=== PATIENT | male | born 1955 | race Caucasian/White ===

== ENCOUNTER 2025-08-17 07:07 | Inpatient (IN) ==
--- NOTE | 2025-08-09 15:42 | PAT Medication Instructions ---
Medication Instructions Date of Service August 09, 2025 Home Medications citalopram 40 mg tablet 40 mg PO QAM montelukast 10 mg tablet 10 mg PO QPM tamsulosin 0.4 mg capsule 0.4 mg PO QAM aspirin 81 mg chewable tablet 81 mg PO QAM atorvastatin 40 mg tablet 40 mg PO HS cetirizine 10 mg tablet (Zyrtec) 10 mg PO QAM sennosides 8.6 mg tablet 8.6 mg PO QAM PRN Constipation ascorbic acid (vitamin C) 500 mg tablet (Vitamin C) 1,000 mg PO DAILY cholecalciferol (vitamin D3) 50 mcg (2,000 unit) capsule (Vitamin D3) 100 mcg PO DAILY omega-3 fatty acids 2,000 mg PO QAM pantoprazole 20 mg tablet,delayed release 20 mg PO QAM primidone 50 mg tablet 100 mg PO HS ASK your prescriber and surgeon aspirin 81 mg chewable tablet 81 mg PO QAM STOP taking 2 weeks before surgery (or as soon as possible if surgery is within 2 weeks) omega-3 fatty acids 2,000 mg PO QAM DO NOT take the morning of surgery cetirizine 10 mg tablet (Zyrtec) 10 mg PO QAM sennosides 8.6 mg tablet 8.6 mg PO QAM PRN Constipation ascorbic acid (vitamin C) 500 mg tablet (Vitamin C) 1,000 mg PO DAILY cholecalciferol (vitamin D3) 50 mcg (2,000 unit) capsule (Vitamin D3) 100 mcg PO DAILY Take morning of surgery With a small sip of water, OTHERWISE NOTHING TO EAT OR DRINK AFTER MIDNIGHT: citalopram 40 mg tablet 40 mg PO QAM tamsulosin 0.4 mg capsule 0.4 mg PO QAM pantoprazole 20 mg tablet,delayed release 20 mg PO QAM Take evening before surgery montelukast 10 mg tablet 10 mg PO QPM atorvastatin 40 mg tablet 40 mg PO HS primidone 50 mg tablet 100 mg PO HS Other Notes If you have any questions please call us at [phone] or [phone] or [phone] or [phone]
--- NOTE | 2025-08-13 08:51 | Anesthesiology Consultation ---
Date of Service August 13, 2025 Assessment & Plan (1) Encounter for pre-operative examination: Infectious disease screening: Per assessment on 08/09/25- No known recent infectious disease contacts or current infectious disease symptoms. Chart Review Chart Review: Acceptable Risk for Surgery and Patient seen in Pre Admission Testing Teaching & Discussion Pre-Anesthesia Teaching/Discussion Notes: Instructed NPO after midnight before surgery,except medications with 15 cc of water. Medication instructions provided according to the PAT guidelines. History Surgery Operation Date: 08/17/25 07:00 Proposed Procedures p Left Knee Poly Exchange - Vincent Adams MD Height/Weight Height: 6 ft 2 in Weight: 129.8 kg Allergies Allergy/AdvReac Type Severity Reaction Status Date / Time No Known Allergies Allergy Verified 08/09/25 14:47 Medications Home Medications Medication Instructions Recorded Confirmed Last Taken citalopram 40 mg tablet 40 mg PO QAM 05/30/21 08/09/25 04/27/22 montelukast 10 mg tablet 10 mg PO QPM 05/30/21 08/09/25 04/27/22 tamsulosin 0.4 mg capsule 0.4 mg PO QAM 05/30/21 08/09/25 04/27/22 aspirin 81 mg chewable tablet 81 mg PO QAM 04/02/22 08/09/25 04/27/22 atorvastatin 40 mg tablet 40 mg PO HS 04/02/22 08/09/25 04/27/22 cetirizine 10 mg tablet (Zyrtec) 10 mg PO QAM 04/02/22 08/09/25 04/27/22 sennosides 8.6 mg tablet 8.6 mg PO QAM PRN Constipation 04/02/22 08/09/25 04/27/22 ascorbic acid (vitamin C) 500 mg 1,000 mg PO DAILY 08/09/25 08/09/25 Unknown tablet (Vitamin C) cholecalciferol (vitamin D3) 50 100 mcg PO DAILY 08/09/25 08/09/25 Unknown mcg (2,000 unit) capsule (Vitamin D3) omega-3 fatty acids 2,000 mg PO QAM 08/09/25 08/09/25 Unknown pantoprazole 20 mg tablet,delayed 20 mg PO QAM 08/09/25 08/09/25 Unknown release primidone 50 mg tablet 100 mg PO HS 08/09/25 08/09/25 Unknown Past Medical History Medical History (Updated 08/13/25 @ 15:09 by Skylar Holliday) BPH (benign prostatic hyperplasia) Brain bleed Hemorrhage present on brain imaging at least present back to 2000, no noted hemorrhage on more recent brain MRI 02/2023- stable cavernous malformation noted. Patient states no issues r/t previous brain imaging findings and advised nothing further needed. CKD (chronic kidney disease) stage 3, GFR 30-59 ml/min Emphysema lung Per records, patient denies GERD (gastroesophageal reflux disease) History of Lyme disease Positive 2021 per records Hx of bladder cancer ~10 years ago, s/p surgical intervention x2, chemo x2 Follows with [facility] Hx of transient ischemic attack (TIA) 2020 Hyperlipidemia Prediabetes Per records, patient denies PTSD (post-traumatic stress disorder) Takes citalopram Sleep apnea CPAP (compliant) Exercise / Class Metabolic Activity II 4-5 Yardwork/Stairs/Walk up hill (one FS: No CP, no SOB) Past Family History Family History Other No family history of adverse response to anesthesia Past Surgical History Surgical History History of total right hip arthroplasty History of transurethral resection of bladder tumor (TURBT) Multiple History of umbilical hernia repair Hx laparoscopic cholecystectomy Hx of left cataract extraction Hx of right cataract extraction Nausea and vomiting after administration of anesthetic agent Many years ago, does well when premedicated S/P ankle ligament repair Left S/P carpal tunnel release Right S/P colonoscopy S/P knee replacement B/L S/P lumbar spine operation x3 (1 procedure r/t herniated disc, other were fx, most recent ~2014) Past Anesthesia History No Hx of Anesthesia Complications and No Family Hx of Anesthesia Complications History of PONV No Hx of Motion Sickness and History of PONV (Many years ago, does well when premedicated) Social History Smoking Status: Former smoker Do You Dip or Chew Tobacco: No (Quit 20+ years ago) Smoking End Date: Quit 2004 Hx Alcohol Use: No Hx Substance Use: No substance use type: does not use Review of Systems Patient denies chest pain, shortness of breath, dyspnea on exertion, fever, chills, cough, wheezing, palpitations. Physical Exam Vital Signs BP 125/79 P 70 TEMP 98.3 SP02 96%RA RESP 16 Physical Full cervical extension range of motion. Full TMJ range of motion. TMD > 3.5 finger breaths Mallampati Score III Dentition: lower partial Lungs: clear throughout to auscultation Cardiac: regular rate and rhythm, no murmurs noted Spine: normal Carotid arteries: negative bruit Extremities: no LE edema Lab Results Anesthesia Preop Results Results Anesthesia Widget: WBC 5.53 K/ul (4.8-10.8) 08/13/25 Hgb 14.3 g/dl (14.0-18.0) 08/13/25 Hct 41.7 % (42.0-52.0) L 08/13/25 Plt 161 K/uL (130-400) 08/13/25 Na 142 mmol/L (136-145) 08/13/25 K 3.8 mmol/L (3.5-5.1) 08/13/25 Cl 105 mmol/L (98-107) 08/13/25 CO2 29 mmol/L (21-32) 08/13/25 BUN 28 mg/dl (6-23) H 08/13/25 Creat 1.24 mg/dl (0.6-1.4) 08/13/25 Glucose Level 100 mg/dl (70-99(Fasting)) H 08/13/25 PT 10.9 Seconds (9.0-12.0) 08/13/25 PTT 27 Seconds (21-31) 08/13/25 INR 1.0 (0.9-1.1) 08/13/25 Urine Color Yellow 08/13/25 Urine Appearance Clear (Clear) 08/13/25 Urine pH 6.0 (4.5-7.5) 08/13/25 Urine Specific [place] 1.026 (1.000-1.030) 08/13/25 Urine Protein Negative (Negative) 08/13/25 Urine Glucose (UA) Negative (Negative) 08/13/25 Urine Ketones Negative (Negative) 08/13/25 Urine Blood Negative (Negative) 08/13/25 Urine Nitrite Negative (Negative) 08/13/25 Urine Bilirubin Negative (Negative) 08/13/25 Urine Urobilinogen Negative (Negative) 08/13/25 Urine Leukocyte Esterase Negative (Negative) 08/13/25 Blood Type A Negative 08/13/25 Antibody Screen NEGATIVE 08/13/25 Testing Electrocardiogram Date: 10/04/24 SB at 56bpm. "Otherwise normal ECG" Chest X-Ray Date: 10/04/24 Findings: + NAD Echocardiogram Date: 12/01/22 LVEF 55-59%. No LV wall motion abnormalities. No significant valvular disease. Mild AYSE. No significant valvular disease. Other Testing Brain MRI Date: 02/15/23 FINDINGS There are no foci of restricted diffusion. There is stable signal abnormality seen adjacent to the left frontal horn, most consistent with a cavernous malformation. There is mild proportional enlargement of the ventricles and sulci, consistent with mild global volume loss. The ventricles are similar in size to the prior study. There are nonspecific subcortical and periventricular foci of T2/FLAIR hyperintensity, most commonly associated with chronic small vessel disease. There is no midline shift. The basal cisterns are patent. The normally expected, central arterial flow voids of the [place] are grossly maintained. The calvarium is not significantly changed. There are asymmetric degenerative changes of the left temporomandibular joint. The nasal septum is deviated to the left. There is mild mucosal thickening of the right frontal sinus, ethmoid air cells, and sphenoid sinuses. There are postsurgical changes of bilateral lens replacement surgery. The mastoid air cells are clear. IMPRESSION 1. No acute intracranial abnormality is identified. 2. Stable signal abnormality seen adjacent to the left frontal horn, most consistent with a cavernous malformation. 3. Scattered nonspecific cerebral white matter foci of T2/FLAIR hyperintensity, most commonly associated with chronic small vessel disease.
--- NOTE | 2025-08-15 14:47 | History & Physical Report ---
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 Plan is a polyethylene exchange to a new polyethylene component of the tibia of the left knee. History of Present Illness Chief Complaint: Acute instability and pain left knee after injury Primary Care Provider: Agustín Phoenix DO 70-year-old male history of left total knee replacement 2014 was doing well until he had an injury to his left knee with x-ray showing no fracture but continued to have instability of his knee since the episode with pain. Allergies Allergy/AdvReac Type Severity Reaction Status Date / Time No Known Allergies Allergy Verified 08/09/25 14:47 Home Medications Medication Instructions Recorded Confirmed Type citalopram 40 mg tablet 40 mg PO QAM 05/30/21 08/09/25 History montelukast 10 mg tablet 10 mg PO QPM 05/30/21 08/09/25 History tamsulosin 0.4 mg capsule 0.4 mg PO QAM 05/30/21 08/09/25 History aspirin 81 mg chewable tablet 81 mg PO QAM 04/02/22 08/09/25 History atorvastatin 40 mg tablet 40 mg PO HS 04/02/22 08/09/25 History cetirizine 10 mg tablet (Zyrtec) 10 mg PO QAM 04/02/22 08/09/25 History sennosides 8.6 mg tablet 8.6 mg PO QAM PRN Constipation 04/02/22 08/09/25 History ascorbic acid (vitamin C) 500 mg 1,000 mg PO DAILY 08/09/25 08/09/25 History tablet (Vitamin C) cholecalciferol (vitamin D3) 50 100 mcg PO DAILY 08/09/25 08/09/25 History mcg (2,000 unit) capsule (Vitamin D3) omega-3 fatty acids 2,000 mg PO QAM 08/09/25 08/09/25 History pantoprazole 20 mg tablet,delayed 20 mg PO QAM 08/09/25 08/09/25 History release primidone 50 mg tablet 100 mg PO HS 08/09/25 08/09/25 History Past Med/Surg History Problem List (Updated 08/15/25 @ 14:46 by Vincent Adams MD) 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 Patient states no issues r/t previous brain imaging findings and advised nothing further needed. CKD (chronic kidney disease) stage 3, GFR 30-59 ml/min GERD (gastroesophageal reflux disease) Emphysema lung Per records, patient denies Prediabetes Per records, patient denies BPH (benign prostatic hyperplasia) Hx of bladder cancer ~10 years ago, s/p surgical intervention x2, chemo x2 Follows with [facility] PTSD (post-traumatic stress disorder) Takes citalopram Hyperlipidemia Hx of transient ischemic attack (TIA) 2020 Sleep apnea CPAP (compliant) Surgical History Nausea and vomiting after administration of anesthetic agent Many years ago, does well when premedicated History of transurethral resection of bladder tumor (TURBT) Multiple Hx of right cataract extraction Hx of left cataract extraction Hx laparoscopic cholecystectomy History of total right hip arthroplasty S/P colonoscopy S/P carpal tunnel release Right S/P ankle ligament repair Left History of umbilical hernia repair S/P lumbar spine operation x3 (1 procedure r/t herniated disc, other were fx, most recent ~2014) S/P knee replacement B/L Family History Other No family history of adverse response to anesthesia Social History Smoking Status: Former smoker Second Hand Exposure: No; Do You Dip or Chew Tobacco: No (Quit 20+ years ago); Hx Alcohol Use: No Hx Substance Use: No Preferred Language: Swedish Communication Ability: Effective Dish Washer Required: No Beliefs That Will Affect Care: None Current Living Situation: Spouse Feels Safe at Home: Yes Assistive Devices: CPAP and Denture - Lower Review of Systems No acute medical issues chest pain shortness of breath. Physical Exam Constitutional: WD/WN, vitals as above Respiratory: normal respiratory effort; no respiratory distress Cardiovascular: Rate/Rhythm: regular rate and regular rhythm Musculoskeletal: Left knee with mild effusion benign surgical scars mild swelling and a positive posterior drawer with no good endpoint consistent with fracture polyethylene post and posterior stabilized implant his right knee which has a posterior stabilized total knee replacement has a solid endpoint. There is mid flexion laxity of the left knee also consistent with fracture polyethylene post creating instability. He has a 0 through 130 degrees range of motion both knees. And his distal neurological circulation exam intact. Skin: no rashes, warm and dry Neurologic: normal touch/pain/proprioception Psychiatric: A+Ox3, euthymic affect Results & Data Diagnostic Findings X-rays demonstrate a [employer]hew journey knee replacement with well-fixed well aligned components no loosening. Patella centrally tracking.
[~2025-08-17 07:07] MED LIST: BUPIVACAINE 0.5 % 5 MG/1 ML PF 10ML VIAL ONE; ROPIVACAINE 0.5% 5 MG/ML 30 ML VIAL ONE
[2025-08-17] MEDS: VANCOMYCIN HCL 2,000 MG in SODIUM CHLORIDE 0.9% 500 ML IV SCH (07:20)
[2025-08-17] MEDS: LR 500ML BOLUS, THEN 15ML/HR IV SCH (07:28)
[2025-08-17] MEDS ORDERED: ONDANSETRON INJ 2 MG/ML 2 ML VIAL ONE (07:42)
[2025-08-17] MEDS ORDERED: MIDAZOLAM HCL 1 MG/ML 2ML VIAL ONE (07:42)
[2025-08-17] MEDS ORDERED: PROPOFOL IV EMULSION 10 MG/ML 20 ML VIAL IV ONE ×5 (07:42→11:51)
[2025-08-17] MEDS ORDERED: LIDOCAINE 2% 2 ML VIAL/AMP(20MG/ML) INFIL ONE (07:42)
[2025-08-17] MEDS: dexAMETHasone**PF** 10 MG/ML VIAL IV SCH (07:51)
[2025-08-17] MEDS: METOCLOPRAMIDE HCL 10 MG TABLET PO SCH (07:52)
[2025-08-17] MEDS: FAMOTIDINE 20 MG TAB PO SCH (07:52)
[2025-08-17] MEDS: CeleBREX 200 MG CAP PO SCH (07:52)
[2025-08-17] MEDS: ACETAMINOPHEN 500 MG TAB PO SCH ×2 (07:52→15:09)
[2025-08-17] MEDS: GABAPENTIN 300 MG CAP PO SCH (07:53)
[2025-08-17] MEDS: LR 60ML/HR IV SCH (07:53)
--- NOTE | 2025-08-17 09:56 | History & Physical Bridge Note ---
Date of Service August 17, 2025 History & Physical Bridge Note I have examined the patient, reviewed the History & Physical and in the interval since the performance of the History & Physical I have noted the following changes of clinical significance: no changes noted
[2025-08-17] MEDS: TRANEXAMIC ACID 1,000 MG **IV Pre-op IV SCH (10:12)
[2025-08-17] MEDS: ceFAZolin 3000MG 3,000 MG/72.5 ML BAG IV SCH (10:23)
[2025-08-17] MEDS: ROPIVACAINE 0.5% HCL/PF 246 MG, Ketorolac (*for OR use only*) 30 MG in SODIUM CHLORIDE ... INFIL SCH (11:37)
[2025-08-17] MEDS: ORTHO JOINT ANESTHETIC ONE (11:59)
--- NOTE | 2025-08-17 12:40 | Operative Report ---
Post Operative Report Pre & Post Diagnosis Operation Date: 08/17/25 09:40 Pre-Op Diagnosis: Left Knee Instability status post total knee arthroplasty with fractured polyethylene post. Post-Op Diagnosis: Left Knee Instability status post total knee arthroplasty with fractured polyethylene post and synovitis. I identified the patient and participated in the time-out.: Yes Procedure Operation Date: 08/17/25 09:40 Actual Procedures p Left knee revision of tibial polyethylene component of total knee replacement with electrocautery synovectomy and application lisa and Acticoat superficial wound VAC- Vincent Adams MD Surgeon Vincent Adams MD Fire Protection Equipment Technician Osman CEDEÑO Estimated Blood Loss 5 Findings Consistent with Post-Op Diagnosis Specimens Polyethylene of tibial component Drains 2 Hemovac Anesthesia Type MAC Spinal Regional Complications none Disposition Disposition: Recovery Room Indications 70-year-old male presented with instability left knee replacement after having had total knee replacement in 2013 and doing well for many years. Clinically clearly has unstable posterior stabilized knee replacement with fractured polyethylene post. Radiographs demonstrate no loosening and inflammatory parameters are normal Description of Procedure Patient was placed under spinal MAC regional block anesthetic. Placed and placed supine on the operating table with a pneumatic tourniquet about the left upper thigh. Left knee exam demonstrated clearly had posterior subluxation of the tibia under the femur consistent with a fracture polyethylene post of the posterior stabilized implant he also had mid flexion marked varus valgus laxity. Left lower extremity was prepped and draped with ChloraPrep in usual fashion. Leg was elevated exsanguinated with an Esmarch bandage and a pneumatic tourniquet was raised to 325 mmHg. His old scar was used for the anterior incision. Skin flaps were elevated and a paramedian arthrotomy performed extended up into the mid third of the quadriceps tendon and down to the medial tibial tubercle. Patient had scarred synovial tissue in the suprapatellar pouch around the patella and infrapatellar fat pad also scarred. Some recurrent lateral synovial bands were released and excised. The tibial polyethylene had a fractured post and the area of the fracture was rounded off and very smooth as this appeared to be chronic. The posterior fragment was stuck in the notch area of the knee prosthesis. This was removed. Electrocautery synovectomy was performed removing the thickened scarred synovial tissue medial and lateral gutter and suprapatellar pouch area. Scarred synovial tissue was also removed around the patella and the scarred infrapatellar fat pad was resected. Hemostasis obtained with aqua mantis. The polyethylene of the tibial was then removed and then we had further exposure so we could remove some of the scarred synovial tissue around the tibia medially and laterally and remove any tissue that would interfere with placing a new polyethylene in place. This was removed with rongeur hemostat and electrocautery devices. A trial 10 constrained polyet hylene was placed and this was appropriate with full extension and complete resolution of instability and full range of motion. The trial was removed. The knee joint was irrigated with Irrisept followed by pulsatile lavage saline solution. The new Welch & Nephew size 5/6 constrained left posterior stabilized tibial polyethylene implant was inserted and then the knee was extended and then the insertion device was used to finalize the insertion with a stable implant. Knee was taken through full range of motion and implant was stable and the patella tracked centrally. Further irrigation with Irrisept followed by saline was performed and then 2 Hemovac drains were placed and brought out laterally and the quadriceps tendon and medial retinacular closure performed with interrupted #2 FiberWire sutures in the medial retinaculum and distal quadriceps tendon and at the apex of the quad split and another additional suture at the level of the tibial polyethylene. A 0 strata fix running locking suture was used starting at the apex of the quad split down to the inferior pole patella medial retinacular area followed by interrupted [id number] #1 Vicryl sutures below that level. The knee was taken through full range of motion was very secure repair through full motion and the knee was stable. After further irrigation the subcutaneous tissue was closed up to 2-0 Vicryl sutures the skin was closed with surgical blake a lisa and Acticoat superficial wound VAC was applied. The patient tolerated the procedure well. Osman CEDEÑO participated as first officer and flight instructor and assisted in leg positioning soft tissue retraction and the closure and application of lisa and Acticoat wound VAC and postoperative care. Im ordering collagen sheets as a primary dressing and bordered super absorbent for secondary dressings for the wound resulting from this surgery. Collagen is being utilized to encourage the growth of blood vessels and granulation tissue. The collagen will also speed up the wound healing process, increase skin tensile strength at the surgery site and lessen the chance of a wound dehiscence, help prevent infection, and reduce the appearance of scarring. The silicone secondary dressings will protect the wound and help keep it clean and minimize that chances for infection. I believe that this treatment protocol is medically necessary to help facilitate the best outcome possible for my patient. I attest to the content of the Intraoperative Record and any orders documented therein. Any exceptions are noted below.
[2025-08-17] MEDS ORDERED: ONDANSETRON INJ 2 MG/ML 2 ML VIAL IV PRN ×2 (12:41→13:48)
[2025-08-17] MEDS ORDERED: HYDROmorphone INJ 2 MG/ML SYR/VIAL IV PRN (12:41)
[2025-08-17] MEDS ORDERED: DEXAMETHASONE SOD INJ 4 MG/ML VIAL IV PRN (12:41)
[2025-08-17] MEDS ORDERED: ATROPINE SULFATE 0.1 MG/ML 10ML SYR IV PRN (12:41)
--- NOTE | 2025-08-17 13:03 | XRay Report ---
XR knee LT 1 or 2V routine CLINICAL HISTORY: Surgical Post Op COMPARISON: None FINDINGS: Left knee prosthesis shows no hardware complication. There is expected soft tissue gas. Sk in blake are present. Postoperative drain is present. IMPRESSION: Unremarkable postoperative exam. ACT 112: Negative or not required by law. Electronically signed by: Agustín Thompson M.D. 08/17/2025 1:01 PM
--- NOTE | 2025-08-17 13:32 | Anesthesiology Progress Note ---
Date of Service August 17, 2025 Anesthesia Post Procedure Vital Signs Vital Signs: Temp Pulse Resp BP Pulse Ox O2 Del Method O2 Flow Rate 08/17/25 13:20 36.4 C L 65 14 122/74 93 Nasal Cannula 2 08/17/25 13:10 64 12 117/68 95 Nasal Cannula 2 08/17/25 13:00 67 13 116/73 94 Oxymask 2 08/17/25 12:50 69 13 118/67 96 Oxymask 10 08/17/25 12:40 70 14 113/63 97 Oxymask 10 08/17/25 12:34 36.7 C 71 12 112/65 95 Oxymask 10 08/17/25 07:34 36.5 C 72 18 139/84 94 Room Air Pain Intensity Left Knee: Pain Intensity: 2 Transfer of Care Handoff Completed per policy Notes Mental Status: alert / awake / arousable and participated in evaluation Patient Amnestic to Procedure: Yes Nausea / Vomiting: adequately controlled Pain: adequately controlled Airway Patency, RR, SpO2: stable & adequate BP & HR: stable & adequate Hydration State: stable & adequate Neuraxial Anesthesia: was administered and sensory block is resolving Anesthetic Complications: no major complications apparent and Pt Satisfied with anesthetic care
[2025-08-17] MEDS ORDERED: METOCLOPRAMIDE HCL INJ 5 MG/ML 2 ML VIAL IV PRN (13:48)
[2025-08-17] MEDS ORDERED: HYDROmorphone INJ 0.5 MG/0.5 ML SYR IV PRN (13:48)
[2025-08-17] MEDS ORDERED: ALUMINUM/MAGNESIUM SUSP 30 ML UDC PO PRN (13:48)
[2025-08-17] MEDS ORDERED: NALOXONE HCL 0.4 MG/1 ML VIAL/CARP IV PRN (13:48)
[2025-08-17] MEDS ORDERED: SENNA 8.6 MG TAB PO PRN (13:48)
[2025-08-17] MEDS ORDERED: diphenhydrAMINE Capsule 25 MG CAP PO PRN (13:48)
[2025-08-17] MEDS ORDERED: KETOROLAC TROMETHAMINE 15 MG/ML VIAL IV PRN (13:48)
[2025-08-17] MEDS ORDERED: MAGNESIUM HYDROXIDE SUSP 30 ML UDC PO PRN (13:48)
[2025-08-17] MEDS: SODIUM CHLORIDE 0.9% 1,000 ML IV SCH (14:05)
[2025-08-17] MEDS: TRANEXAMIC ACID / 0.7% NACL 1,000 MG/100 ML BAG IV SCH (18:34)
[2025-08-17] MEDS: DOCUSATE SODIUM 100 MG CAP PO SCH (20:20)
[2025-08-17] MEDS: SENNA 8.6 MG TAB PO SCH (20:20)
[2025-08-17] MEDS: MONTELUKAST SODIUM 10 MG TABLET PO SCH (20:21)
[2025-08-17] MEDS: ATORVASTATIN 40 MG TAB PO SCH (20:21)
[2025-08-17] MEDS: PRIMIDONE 50 MG TAB PO SCH (20:22)
[2025-08-18 00:54] VITALS: O2SAT 93
[2025-08-18 06:32] LABS: Hematocrit (blood only) 40.3 % (42.0-52.0); Hemoglobin 13.7 g/dL (14.0-18.0); Mean Corpuscular Hemoglobin 29.5 pg (25.0-34.0); Mean Corpuscular Volume 86.9 fL (80.0-100.0); Platelet Count 173 K/uL (130-400); RDW Standard Deviation 40.6 fL (36.4-46.3); Red Blood Count 4.64 M/uL (4.70-6.10); White Blood Count 11.73 K/ul (4.8-10.8)
[2025-08-18 06:57] LABS: Anion Gap 10.0 (3-11); Blood Urea Nitrogen 33.0 mg/dl (6-23); Calcium 8.8 mg/dl (8.6-10.3); Carbon Dioxide 26.0 mmol/L (21-32); Chloride 102.0 mmol/L (98-107); Creatinine Clr Calc Pharmacy 73.6 ml/min; Glucose 108.0 mg/dl (70-99(Fasting)); Potassium 3.9 mmol/L (3.5-5.1); Sodium 138.0 mmol/L (136-145)
[2025-08-18] MEDS: CHOLECALCIFEROL 25 MCG (1000 UNITS) TAB PO SCH (07:42)
[2025-08-18] MEDS: ASPIRIN 81 MG ECTAB PO SCH (07:42)
[2025-08-18] MEDS: TAMSULOSIN HCL 0.4 MG CAP PO SCH (07:42)
[2025-08-18] MEDS: CITALOPRAM 40 MG TAB PO SCH (07:42)
[2025-08-18] MEDS: CETIRIZINE HCL 10 MG TABLET PO SCH (07:42)
[2025-08-18] MEDS: OMEGA-3 (PURIFIED FISH OIL) 1 GM CAP PO SCH (07:42)
[2025-08-18] MEDS: ASCORBIC ACID 500 MG TAB PO SCH (07:42)
[2025-08-18] MEDS: MULTIVITAMIN TAB PO SCH (07:42)
[2025-08-18] MEDS: dexAMETHasone 10 MG in SYRINGE 0 ML IV SCH (07:43)
--- NOTE | 2025-08-18 07:58 | Orthopedic Progress Note ---
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 Discharge planningplan for discharge home today and patient will go to outpatient physical therapy. The Hemovac may be removed prior to discharge. Admission and Anticipated Discharge Date Admission Date: August 17, 2025 Subjective Patient is doing well postop day #1 from polyethylene exchange from his left total knee arthroplasty. Pain is controlled in the knee. No complaints this morning. Physical Exam Constitutional: WD/WN, vitals as above well developed and well nourished; no acute distress Musculoskeletal: Knee: + surgical incision (Left knee dressing C/D/I) and + surgical drain present (Hemovac drainage approximately 200 cc); knee normal to inspection, no skin erythema and no ecchymosis Skin: no rashes, warm and dry Trauma: no evidence of skin trauma Neurologic: normal touch/pain/proprioception Psychiatric: A+Ox3, euthymic affect Speech: normal rate/rhythm/volume of speech Results & Data Vital Signs (Past 12 Hours) Vital Signs Temp Pulse Resp BP Pulse Ox O2 Del Method 08/18/25 00:45 36.3 C L 68 15 136/77 93 Room Air 08/17/25 20:47 36.4 C L 65 16 152/82 H 92 Room Air Laboratory Results Laboratory Tests 08/18/25 05:41 Hgb 13.7 L Hct 40.3 L Sodium 138 Potassium 3.9 BUN 33 H Creatinine 1.33
[2025-08-18 08:29] VITALS: BP 147/80; PULSE 70; RESP 18; TEMP 97.5
--- NOTE | 2025-08-22 10:47 | Discharge Summary ---
Date of Service August 22, 2025 Admission HPI Per Admitting Provider 70-year-old male history of left total knee replacement 2014 was doing well until he had an injury to his left knee with x-ray showing no fracture but continued to have instability of his knee since the episode with pain. Principal Diagnosis Left knee total knee arthroplasty polyethylene fracture Discharge Exam Constitutional WD/WN, vitals as above well developed and well nourished; no acute distress Musculoskeletal Knee: + surgical incision (Left knee dressing C/D/I) and + surgical drain present (Hemovac drainage approximately 200 cc); knee normal to inspection, no skin erythema and no ecchymosis Skin no rashes, warm and dry Trauma: no evidence of skin trauma Neurologic normal touch/pain/proprioception Psychiatric A+Ox3, euthymic affect Speech: normal rate/rhythm/volume of speech Discharge Data Allergies Allergy/AdvReac Type Severity Reaction Status Date / Time No Known Allergies Allergy Verified 08/17/25 07:30 Procedures Performed Operation Date: 08/17/25 09:40 Actual Procedures p Left Knee Poly Exchange(Left) - Vincent Adams MD Ordered Studies 08/17/25 05:00 US - OR guided needle placemen Routine Hospital Course (1) Polyethylene liner wear following total knee arthroplasty requiring isolated polyethylene liner exchange: Doing well POD #1 s/p Left knee revision of tibial polyethylene component of total knee replacement with electrocautery synovectomy and application pamela and Acticoat superficial wound VAC PT/OT DVT prophylaxisaspirin 81 mg twice daily, ZHENG stockings Pain control as written. Discharge planningplan for discharge home today and patient will go to outpatient physical therapy. The Hemovac may be removed prior to discharge. Total Time Total Time Spent Total Time Spent (In Minutes): 15 Discharge Plan Discharge Items Patient Disposition: Home - Self-Care Reason For Visit: Left Knee Instability, Hx of TKA Discharge Diagnosis: Left total knee fractured polyethylene post right Activity: Per Instructions section Non-emergency contact: Primary Care Provider and Surgeon Call non-emergency contact if: your pain is not controlled, your pain is worsening and your temperature is above 101 Follow-up/Referrals: Agustín Phoenix DO [Primary Care Provider] - Diet: Regular Addtl Attending Provider Instructions: ACTIVITY RECOMMENDATIONS: SELF CARE INSTRUCTIONS AFTER TOTAL KNEE POLYETHYLENE EXCHANGE A. You may need to continue a physical therapy program after discharge from the hospital. There are several options available to you. Your doctor will assist you in selecting the best one for you. 1. An out-patient facility 3 times a week for therapy. 2. Home therapy for 1 to 2 weeks with outpatient therapy to follow. 3. Continue working on all exercises taught by physical therapy three times a day for 20 minutes on non-therapy days. Your goals should be to increase the bending of your knee to 90 degrees and beyond and to fully straighten your knee. Ice and elevate knee after exercise. B. Weight as tolerated with a walker or as instructed by your physician. C. It is okay to shower if minimal to no drainage from incision. No Baths. Do not soak wound. D. Make walking a part of your daily routine. Be up as much as comfortable with rest periods throughout the day. Rest with leg elevation is very important. Use the ice wrap frequently for the first 3-4 weeks. E. There are no restrictions on activities. You may ride in a car, shop, participate in mill turner and all social activities. F. Wear the long elastic stockings (ZHENG hose) 20 hours a day for one month after surgery. They can be removed several times a day for laundering and when showering. G. You may return to previous diet. H. PAMELA dressing: You have a PAMELA dressing on your surgical wound. It will remain in place for 7 days from surgery. You will be provided with a booklet with the do's and don'ts with the dressing in place. After 7 days, the dressing may be removed. If there is drainage from the surgical incision, you may cover the wound with dry dressings. I. You will have collagen dressings sent to your home. These dressings will be started once the PAMELA dressing is removed 7 days after surgery. SPECIAL CARE INSTRUCTIONS: VERY IMPORTANT TO READ AND REVIEW A. Take Coumadin, Xarelto, Aspirin or Lovenox (blood thinning medications) as directed by your doctor. If on Coumadin, have a pro-time (blood test) drawn according to your doctor's instructions. This will tell the doctor how well the Coumadin is thinning your blood. B. There are a few signs you need to watch for after you are home. Call [facility] if you notice any of the followin. Increased severe knee pain. Some pain is expected especially when you exercise. 2. Increased swelling in your leg or knee; pain or swelling of the calf muscle in either lower leg. 3. Any redness or fluid drainage from the incision. 4. Shortness of breath or chest pain. 5. A Temperature of 101 degrees F or greater. C. Please call [facility] at if you have any concerns or questions about your operation or recovery. The doctor or his nurse will return your call promptly. D. You must take antibiotics before dental work, bladder, bowel or other surgery. Your doctor will provide you with a permanent care to carry describing this precaution. FOLLOW UP VISIT: If appointment is not already scheduled: Please call [facility] to make a follow-up appointment for 2 weeks after your surgery at . Pending Studies at Discharge: No Stand-Alone Forms: My [facility] [employer], Smoking Cessation Medications and DC Order Prescriptions: New celecoxib [Celebrex] 200 mg capsule 200 mg PO Q12H Qty: 60 0RF aspirin 81 mg tablet,delayed release (DR/EC) 81 mg PO BID Qty: 60 0RF cefadroxil 500 mg capsule 500 mg PO Q12H Qty: 28 0RF oxycodone 5 mg tablet 5 mg PO Q4H PRN (Reason: pain) Qty: 30 0RF acetaminophen [Tylenol Extra Strength] 500 mg tablet 1,000 mg PO Q8H Qty: 90 0RF Continued tamsulosin 0.4 mg capsule 0.4 mg PO QAM citalopram [Celexa] 40 mg tablet 40 mg PO QAM montelukast 10 mg tablet 10 mg PO QPM atorvastatin 40 mg Tablet 40 mg PO HS sennosides 8.6 mg Tablet 8.6 mg PO QAM PRN (Reason: Constipation) cetirizine [Zyrtec] 10 mg Tablet 10 mg PO QAM primidone [Mysoline] 50 mg Tablet 100 mg PO HS pantoprazole 20 mg Tablet,Delayed Release (Dr/Ec) 20 mg PO QAM ascorbic acid (vitamin C) [Vitamin C] 500 mg Tablet 1,000 mg PO DAILY omega-3 fatty acids Capsule 2,000 mg PO QAM cholecalciferol (vitamin D3) [Vitamin D3] 50 mcg (2,000 unit) Capsule 100 mcg PO DAILY Held aspirin 81 mg Tablet,Chewable 81 mg PO QAM Hold Instructions: Resume on 09/16/25. Discharge Orders: Discharge Order (Routine); Ordered 08/18/25 Ordered By: Osman Ren/Other Patient Handouts: Knee Replacement Post Op Admission Data Admit Date/Time: 08/17/25 12:38 Attending Provider: Vincent Adams Admit Provider: Vincent Adams Primary Care Provider: Agustín Phoenix V. Other Interventions: Discharge Summary Assessment (RN) Last Done: 08/18/25 08:59
== END 2025-08-18 11:45 | disposition home or self-care (01) | DRG 489 ==
LOC: ASU 07:07 → 3E 12:38
DX: Z87.891 Personal history of nicotine dependence; Z96.641 Presence of right artificial hip joint; T84.063A Wear of articular bearing surface of internal prosthetic left knee joint, initial encounter; T84.023A Instability of internal left knee prosthesis, initial encounter; R73.03 Prediabetes; G47.30 Sleep apnea, unspecified; Z79.82 Long term (current) use of aspirin; Z79.899 Other long term (current) drug therapy; Y83.1 Surgical operation with implant of artificial internal device as the cause of abnormal reaction of the patient, or of later complication, without mention of misadventure at the time of the procedure; Z96.653 Presence of artificial knee joint, bilateral; E78.5 Hyperlipidemia, unspecified; M65.962 Unspecified synovitis and tenosynovitis, left lower leg; X58.XXXA Exposure to other specified factors, initial encounter; F43.10 Post-traumatic stress disorder, unspecified; N40.0 Benign prostatic hyperplasia without lower urinary tract symptoms; K21.9 Gastro-esophageal reflux disease without esophagitis; T84.013A Broken internal left knee prosthesis, initial encounter; N18.30 Chronic kidney disease, stage 3 unspecified; J43.9 Emphysema, unspecified